=== PATIENT | male | born 1965 | race Caucasian/White ===

== ENCOUNTER 2020-04-15 11:52 | Emergency (ER) | payer MEDICAID, OTHER ==
[~2020-04-15] VITALS: Ht 172.7 cm; Wt 102.1 kg
[2020-04-15 12:00] VITALS: BP 129/78
== END 2020-04-15 12:42 | disposition home or self-care (01) ==
LOC: ER 11:59
DX: R05 Cough (principal); R06.02 Shortness of breath; R91.8 Other nonspecific abnormal finding of lung field; Z20.828 Contact with and (suspected) exposure to other viral communicable diseases
CPT/HCPCS: 71045-TC